=== PATIENT | female | born 1980 | race Caucasian/White ===

== ENCOUNTER 2019-11-08 02:41 | Emergency (ER) | payer MEDICAID ==
[~2019-11-08] VITALS: Ht 160 cm; Wt 61.3 kg
[2019-11-08] MEDS ORDERED: ondansetron 4mg rapidly disintigrating tab PO ONE (03:05)
[2019-11-08] MEDS ORDERED: ibuprofen tablet 400 MG TABLET PO ONE (03:05)
[2019-11-08] MEDS ORDERED: acetaminophen 325mg tablet PO ONE ×2 (03:05)
[2019-11-08] MEDS ORDERED: clindamycin 150mg capsule PO ONE (04:00)
[2019-11-08] MEDS ORDERED: ketorolac tromethamine 15mg/ml inj. IM ONE (04:00)
[2019-11-08 04:39] VITALS: BP 151/83
== END 2019-11-08 04:43 | disposition home or self-care (01) ==
LOC: ER 02:42
DX: L03.113 Cellulitis of right upper limb (principal); L02.511 Cutaneous abscess of right hand; F12.90 Cannabis use, unspecified, uncomplicated
CPT/HCPCS: 10060; 73120; 96372; 99284; J1885